=== PATIENT | female | born 2000 | race Two or more races ===

== ENCOUNTER 2022-02-05 21:16 | Emergency (ER) | payer MEDICAID ==
[~2022-02-05] VITALS: Ht 154.9 cm; Wt 75.0 kg
[2022-02-05 21:28] VITALS: BP 134/69
== END 2022-02-06 03:14 | disposition left against medical advice (07) ==
LOC: ER 21:16
DX: R11.0 Nausea (principal); R20.2 Paresthesia of skin; Z53.21 Procedure and treatment not carried out due to patient leaving prior to being seen by health care provider